=== PATIENT | female | born 1965 | race Caucasian/White ===

== ENCOUNTER 2021-02-06 14:48 | Outpatient (REF) | payer OTHER, SELFPAY | END 2021-02-06 14:49 | disposition home or self-care (01) | LOC: HO.SCI 14:48 | PROVIDERS: Visit Provider Ophthalmology | DX: Z13.89 Encounter for screening for other disorder (principal) ==

== ENCOUNTER 2021-02-11 15:41 | Outpatient (REF) | payer OTHER, SELFPAY ==
--- NOTE | ~2021-02-11 | MR_ITS ---
EXAMINATION: MR BRAIN WITHOUT AND WITH CONTRAST MRA HEAD WITHOUT AND WITH CONTRAST CLINICAL INFORMATION: 55-year-old with anisocoria. Evaluate for 4th nerve palsy. COMPARISON: None MRI BRAIN TECHNIQUE: Multiplanar multisequence MR imaging of the brain was done to include thin sections through the basal cisterns prior to and following the intravenous administration of 10 mL of Gadavist. FINDINGS: Brain Volume: Normal for age. Structural: No malformations. Brain and Meninges: DWI imaging demonstrates no restricted diffusion. Specifically, there is no evidence for recent or acute infarct. Gradient-echo imaging demonstrates no evidence for susceptibility-weighted signal loss. Specifically, there is no evidence for hemorrhage, hemosiderin staining or abnormal mineral deposition. The brain is normal in morphology and signal intensity on FLAIR imaging. The perimesencephalic, prepontine, cerebellopontine angle, and premedullary cisterns demonstrate no evidence for mass lesion or abnormal enhancement. The internal auditory canals demonstrate no evidence for mass lesion or abnormal enhancement. The 5th and 3rd nerves are visualized bilaterally and appear normal. Meckel's caves enhance normally. The cavernous sinuses enhance normally and symmetrically. No brainstem lesions are identified. Whole brain postcontrast imaging demonstrates no evidence for intracranial mass lesion or abnormal enhancement. Ventricles and Subarachnoid Spaces: The ventricular system and subarachnoid spaces are within normal limits without hydrocephalus. Orbital Structures: The visualized orbital structures appear grossly unremarkable within the limitations of the study. Vascular: Signal voids are noted in the visualized major intracranial vessels at the level of the skull base. Sinuses and Osseous Structures: Grossly unremarkable within the limitations of the exam. MRA BRAIN: FINDINGS: The visualized intracranial vessels are normal in caliber and configuration. Specifically, the intracranial internal carotid arteries are smoothly contoured and normal in caliber. The M1 and M2 segments and candelabra branches are patent and normal in caliber with smooth contour. The A1 and A2 segments and anterior communicating artery appear within normal limits. There is a origin of the right posterior cerebral artery. The left posterior communicating artery is diminutive. No aneurysms or vascular malformations are identified. The V4 segments of both vertebral arteries are visualized with the left being dominant and are normal in caliber. The posterior inferior cerebellar arteries are visualized bilaterally and appear normal at their origins. The basilar artery is normal in caliber and configuration. 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 Otherwise, the customer marketing manager are normal in caliber and configuration, and there is a normal appearance to the superior cerebellar arteries bilaterally. No aneurysms or vascular malformations. Note that there is tortuosity of the high C1 segment of the right ICA just below the skull base. MR/MR angio head wo/w con IMPRESSION: 1. Normal MRI of the brain without and with contrast. 2. Normal MRA of the brain without and with contrast.
--- NOTE | ~2021-02-11 | MR_ITS ---
EXAMINATION: MR BRAIN WITHOUT AND WITH CONTRAST MRA HEAD WITHOUT AND WITH CONTRAST CLINICAL INFORMATION: 55-year-old with anisocoria. Evaluate for 4th nerve palsy. COMPARISON: None MRI BRAIN TECHNIQUE: Multiplanar multisequence MR imaging of the brain was done to include thin sections through the basal cisterns prior to and following the intravenous administration of 10 mL of Gadavist. FINDINGS: Brain Volume: Normal for age. Structural: No malformations. Brain and Meninges: DWI imaging demonstrates no restricted diffusion. Specifically, there is no evidence for recent or acute infarct. Gradient-echo imaging demonstrates no evidence for susceptibility-weighted signal loss. Specifically, there is no evidence for hemorrhage, hemosiderin staining or abnormal mineral deposition. The brain is normal in morphology and signal intensity on FLAIR imaging. The perimesencephalic, prepontine, cerebellopontine angle, and premedullary cisterns demonstrate no evidence for mass lesion or abnormal enhancement. The internal auditory canals demonstrate no evidence for mass lesion or abnormal enhancement. The 5th and 3rd nerves are visualized bilaterally and appear normal. Meckel's caves enhance normally. The cavernous sinuses enhance normally and symmetrically. No brainstem lesions are identified. Whole brain postcontrast imaging demonstrates no evidence for intracranial mass lesion or abnormal enhancement. Ventricles and Subarachnoid Spaces: The ventricular system and subarachnoid spaces are within normal limits without hydrocephalus. Orbital Structures: The visualized orbital structures appear grossly unremarkable within the limitations of the study. Vascular: Signal voids are noted in the visualized major intracranial vessels at the level of the skull base. Sinuses and Osseous Structures: Grossly unremarkable within the limitations of the exam. MRA BRAIN: FINDINGS: The visualized intracranial vessels are normal in caliber and configuration. Specifically, the intracranial internal carotid arteries are smoothly contoured and normal in caliber. The M1 and M2 segments and candelabra branches are patent and normal in caliber with smooth contour. The A1 and A2 segments and anterior communicating artery appear within normal limits. There is a origin of the right posterior cerebral artery. The left posterior communicating artery is diminutive. No aneurysms or vascular malformations are identified. The V4 segments of both vertebral arteries are visualized with the left being dominant and are normal in caliber. The posterior inferior cerebellar arteries are visualized bilaterally and appear normal at their origins. The basilar artery is normal in caliber and configuration. There is hypoplasia of the P1 segment of the right FINISH INSPECTOR consistent with origin. Otherwise, the carver and checkerer specials are normal in caliber and configuration, and there is a normal appearance to the superior cerebellar arteries bilaterally. No aneurysms or vascular malformations. Note that there is tortuosity of the high C1 segment of the right ICA just below the skull base. MR/MR head/brain wo/w con IMPRESSION: 1. Normal MRI of the brain without and with contrast. 2. Normal MRA of the brain without and with contrast.
== END 2021-02-11 15:42 | disposition home or self-care (01) ==
LOC: HO.MRI 15:41
PROVIDERS: PCP Family Medicine; Visit Provider Ophthalmology
DX: H57.02 Anisocoria (principal)
CPT/HCPCS: 70546; 70553; A9585